=== PATIENT | male | born 1980 | race Caucasian/White ===

== ENCOUNTER 2018-07-01 10:07 | Emergency (ER) | payer BC ==
--- NOTE | 2018-07-01 11:24 | RAD ---
HISTORY: lower back pain COMPARISONS: None VIEWS: 3 , Frontal, lateral, and coned-down lateral sacral views of the lumbar spine FINDINGS: ALIGNMENT: There is mild dextroscoliotic curvature of the spine. VERTEBRAL BODIES: The patient is status post spinal fusion at L5-S1, with anterior locking screws. There is no hardware failure or osteolysis. There are bilateral pars defects at L5. JOINTS: There is mild facet hypertrophy change along the lower lumbar spine. INTERVERTEBRAL DISCS: Intervertebral graft material is noted at L5-S1. SOFT TISSUE: Unremarkable. OTHER: The pelvis is unremarkable. The lung bases are clear. IMPRESSION: 1. MILD SCOLIOSIS. 2. STATUS POST SPINAL FUSION AT L5-S1. 3. OTHERWISE NORMAL RADIOGRAPH OF THE LUMBAR SPINE.
--- NOTE | 2018-07-01 11:32 | UC ---
Back Pain HPI - HPI Summary HPI Summary: lower back pain x 2 weeks pain is sever 7 out of 10 , radiation of the pain to his left leg and up the spine worse with movements, better, with rest, no fever, no chills, no urinary sx hx of lower back pain s/p spinal fusion surgery - History of Current Complaint Chief Complaint: UCBackPain Stated Complaint: BACK COMPLAINT Time Seen by Provider: 07/01/18 10:52 Hx Obtained From: Patient Onset/Duration: Gradual Onset, Lasting Days - 14, Still Present, Worse Since - past 2 days Timing: Constant Severity Initially: Moderate Severity Currently: Severe Pain Intensity: 7 Character: Sharp Aggravating Factor(s): Movement, Lifting, Bending, Walking, Cough Alleviating Factor(s): Rest Associated Signs And Symptoms: Positive: Weakness, Numbness. Negative: Swelling , Redness, Bruising, Fever, Tingling, Abdominal Pain, Flank Pain, Weight Loss - Allergies/Home Medications Allergies/Adverse Reactions: Allergies Allergy/AdvReac Type Severity Reaction Status Date / Time No Known Allergies Allergy Verified 07/01/18 10:44 Home Medications: Home Medications Citalopram TAB* [CeleXA TAB*] 10 mg PO DAILY 07/01/18 [History Confirmed ] busPIRone TAB* [Buspar TAB*] 5 - 10 mg PO DAILY PRN 07/01/18 [History Confirmed 07/01/18] PMH/Surg Hx/FS Hx/Imm Hx - Additional Past Medical History Additional PMH: chronic back pain s/p spinal fusion surgery - Surgical History Surgical History: Yes Surgery Procedure, Year, and Place: Spinal fusion L5 S1, ALIF, with hardware by Ayan Lujan at [facility]. - Family History Known Family History: Negative: Diabetes - Social History Alcohol Use: Occasionally Substance Use Type: Prescribed Smoking Status (MU): Former Smoker Review of Systems Constitutional: Negative Skin: Negative Eyes: Negative ENT: Negative Respiratory: Negative Is Patient Immunocompromised?: No All Other Systems Reviewed And Are Negative: Yes Physical Exam Triage Information Reviewed: Yes Appearance: Well-Nourished, Pain Distress Vital Signs: Initial Vital Signs Temp 97.9 F 07/01/18 10:27 Pulse 68 07/01/18 10:27 Resp 24 07/01/18 10:27 BP 134/86 07/31/18 10:27 Pulse Ox 100 07/01/18 10:27 Vital Signs Reviewed: Yes Eyes: Positive: Conjunctiva Clear ENT: Positive: Normal ENT inspection, Hearing grossly normal, Pharynx normal Neck: Positive: Supple, Nontender, No Lymphadenopathy Respiratory: Positive: Chest non-tender, Lungs clear, Normal breath sounds Cardiovascular: Positive: RRR, No Murmur, Pulses Normal Abdomen Description: Positive: Nontender, Soft. Negative: CVA Tenderness (R), CVA Tenderness (L), Distended, Guarding Bowel Sounds: Positive: Present UC Physical Exam Vital Signs On Initial Exam: Initial Vitals Temp Pulse Resp BP Pulse Ox 97.9 F 68 24 134/86 100 07/01/18 10:27 07/01/18 10:27 07/01/18 10:27 07/01/18 10:27 07/01/18 10:27 - Back Exam Back Exam: no vertebral tenderness, decreased range of motion, Focal Tenderness @, Paraspinal Muscle Tenderness, Paraspinal Muscle Spasm Diagnostics - Laboratory Diagnostic Studies Completed/Ordered: xray LS spine : IMPRESSION: 1. MILD SCOLIOSIS. 2. STATUS POST SPINAL FUSION AT L5-S1. 3. OTHERWISE NORMAL RADIOGRAPH OF THE LUMBAR SPINE. Back Pain Course/Dx - Differential Dx/Diagnosis Provider Diagnoses: lower back pain Discharge - Sign-Out/Discharge Documenting (check all that apply): Patient Departure - Discharge Plan Condition: Stable Disposition: HOME Prescriptions: HYDROcodone/ACETAMIN 5-325 MG* [[place] 5-325 TAB*] 1 tab PO Q6H PRN #20 tab MDD 4 PRN Reason: Pain Referrals: Allyssa Ramsey MD [Primary Care Provider] - - Billing Disposition and Condition Condition: STABLE Disposition: Home
== END 2018-07-01 11:54 | disposition home or self-care (01) ==
LOC: UCCORT 10:07
DX: M54.5 Low back pain (principal); G89.29 Other chronic pain; Z98.1 Arthrodesis status; Z87.891 Personal history of nicotine dependence
CPT/HCPCS: 72100; 99202; G0463